=== PATIENT | male | born 1995 | race Caucasian/White ===

== ENCOUNTER 2022-04-14 20:55 | Emergency (ER) | payer BC ==
[~2022-04-14] VITALS: Ht 177.8 cm; Wt 77.3 kg
[2022-04-15 00:08] VITALS: BP 115/62
== END 2022-04-15 00:11 | disposition home or self-care (01) ==
LOC: M ED 20:55
DX: S89.92XA Unspecified injury of left lower leg, initial encounter (principal); W50.0XXA Accidental hit or strike by another person, initial encounter; Y93.22 Activity, ice hockey; Y92.330 Ice skating rink (indoor) (outdoor) as the place of occurrence of the external cause; M54.9 Dorsalgia, unspecified; Z91.010 Allergy to peanuts